=== PATIENT | male | born 1985 | race Hispanic/Latino ===

== ENCOUNTER 2021-02-04 07:15 | Emergency (ER) | payer SELFPAY ==
[2021-02-04 07:42] VITALS: BP 145/90
[2021-02-04] MEDS ORDERED: KETOROLAC 30 MG/1 ML INJ IM ONE (09:27)
--- NOTE | 2021-02-04 09:32 | Emergency Department Report ---
ED General Adult HPI - General Chief complaint: Psych Stated complaint: DEHYDRATION X 6 HRS Time Seen by Provider: 02/04/21 09:25 Source: patient, EMS Mode of arrival: Ambulatory Limitations: No Limitations - History of Present Illness Initial comments: 35-year-old male patient with history of bipolar disorder and chronic neck/back pain presents to the emergency department with complaints of an acute exacerbation of his chronic neck and back pain starting 3 days ago after he was arrested. Patient states he was restrained forcefully at the time of the arrest, which he has attributed to his increased pain. While he was incarcerated, he did not have access to his medications. Patient states he usually takes gabapentin and NSAIDs. He was under the care of a primary care provider before his incarceration, but now is not sure if he will be able to follow-up due to losing his job. Pain is consistent with prior flareups. Denies paresthesias, numbness, chest pain, shortness of breath, syncope, palpitations. Denies other complaints at this time. Severity scale (0 -10): 10 - Related Data Previous Rx's Medication Instructions Recorded Last Taken Type Naproxen 500 mg PO BID #20 tablet 02/04/21 Unknown Rx Allergies Allergy/AdvReac Type Severity Reaction Status Date / Time No Known Allergies Allergy Unverified 02/04/21 07:39 ED Review of Systems ROS: Stated complaint: DEHYDRATION X 6 HRS Other details as noted in HPI Other: GENERAL: Negative for fever, chills, weight change, anorexia, fatigue. ENT: Negative for ear pain, difficulty hearing, sore throat, nasal congestion, epistaxis. CARDIOVASCULAR: Negative for chest pain, palpitations, lower extremity swelling. PULMONARY: Negative for cough, dyspnea, wheezing, orthopnea, cyanosis. GASTROINTESTINAL: Negative for abdominal pain, nausea, vomiting, diarrhea, constipation. MUSCULOSKELETAL: Positive for back pain. NEUROLOGICAL: Negative for headache, seizure, syncope, paresthesias, weakness. INTEGUMENTARY: Negative for erythema, rash, diaphoresis, laceration, ecchymosis. HEMATOLOGICAL: Negative for hemoptysis, hematemesis, hematochezia, hematuria. PSYCHIATRIC: Negative for hallucinations, suicidal ideation, homicidal ideation, anxiety, depression. ED Past Medical Hx - Past Medical History Previous Medical History?: No - Surgical History Past Surgical History?: Yes Additional Surgical History: hernia repair - Medications Home Medications: Home Medications Medication Instructions Recorded Confirmed Last Taken Type Naproxen 500 mg PO BID #20 tablet 02/04/21 Unknown Rx ED Physical Exam - General Limitations: No Limitations - Other Other exam information: General: Awake and alert. No acute distress. Head: Atraumatic, normocephalic. Eyes: EOMI. Pupils are equal and round. Normal sclera and conjunctiva. ENT: Oral mucosa is moist. Normal pharyngeal exam. Neck: Supple. No lymphadenopathy. Pulmonary: No respiratory distress. Clear to auscultation bilaterally. Cardiac: Tachycardic. Pulses are palpable and equal bilaterally. No lower extremity cyanosis or edema. Skin: Warm and dry. No rashes. Abdomen: Soft, non-tender, non-protuberant. No guarding, rigidity, or rebound. Bowel sounds are normal. No organomegaly or masses noted. Back: Normal alignment. No CVA tenderness. Extremities: Symmetrical. Full range of motion intact. Neurological: Alert and oriented, appropriately interactive, no focal deficits. Psych: Cooperative. Appropriate mood and affect. Speech is evenly metered. Thoughts are logically construed. ED Course Vital Signs 02/04/21 02/04/21 02/04/21 07:40 09:55 10:13 Temperature 98.7 F Pulse Rate 100 H 112 H Respiratory 18 18 Rate Blood Pressure 145/90 [Right] O2 Sat by Pulse 99 Oximetry 02/04/21 13:17 Temperature Pulse Rate 72 Respiratory Rate Blood Pressure [Right] O2 Sat by Pulse Oximetry ED Medical Decision Making - Lab Data Result diagrams: 02/04/21 10:10 02/04/21 10:10 - Medical Decision Making Differential diagnosis including but not limited to: dehydration, electrolyte abnormality, hypoglycemia, rhabdomyolysis, toxic ingestion, anemia Patient presents emergency department with complaints of an acute exacerbation of his chronic back pain. He was recently released from skilled nursing. States he was unable to take his medications for the 3 days during which he was incarcerated. States his back pain is consistent with his baseline. Patient was noted to be tachycardic on arrival to the emergency department. No fever. Tachycardia did not resolve after analgesics and therefore further diagnostic work-up was initiated, which showed patient was mildly dehydrated. He is also positive for amphetamines. Tachycardia did resolve after a liter of IV fluids. Patient does have a history of bipolar disorder; he has his medications with him and has resumed taking them since he was released from skilled nursing. He specifically denies suicidal ideation, homicidal ideation, and hallucinations. He is not exhibiting any clinical signs of psychosis or agitation. He does not appear to be a harm to himself or others. He was not brought to the emergency department by law enforcement. There is no reason to keep him in the emergency department on an involuntary basis for mental health assessment. He has been advised to continue his current medication regimen and return to the emergency department immediately for any changes in his mental state. On reevaluation, patient is stable and states his symptoms have improved. He is resting comfortably. Repeat heart rate is in the 70s. No clinical evidence to suggest concomitant infectious process or significant metabolic derangement to warrant further diagnostic work-up on an emergent basis at this time. Patient will be discharged home with a short course of NSAIDs for his back pain. It was explained to the patient that the emergency department is not designed to manage chronic pain, and he would need to follow-up with a primary care provider for definitive management of his ongoing back pain. Patient expressed understanding and is agreeable to plan of care. Strict return precautions provided. Repeat exam is unremarkable and benign. History, exam, diagnostic testing, and current condition do not suggest worrisome pathology to warrant further testing, continued ED treatment, admission, or surgical evaluation at this point. Given the low probability of a significant medical illness, it would be more likely to result in harm than benefit to perform further testing at this stage. Discussed findings, presumptive diagnosis, need for follow-up and specific signs/symptoms that should prompt immediate return to the emergency department. Instructions were explained in detail to the patient in addition to giving written discharge information. Patient expressed understanding and was given the opportunity to ask questions, all of which were satisfactorily answered prior to discharge home . Critical care attestation.: If time is entered above; I have spent that time in minutes in the direct care of this critically ill patient, excluding procedure time. ED Disposition Clinical Impression: Chronic back pain Qualifiers: Back pain location: back pain in unspecified location Back pain laterality: unspecified Qualified Code(s): M54.9 - Dorsalgia, unspecified Disposition: DC-01 TO HOME OR SELFCARE Is pt being admited?: No Does the pt Need Aspirin: No Condition: Stable Instructions: Chronic Back Pain, [id number] Additional Instructions: Take Naprosyn twice daily with food as needed for pain. Continue all other medications as previously prescribed. Rest. Drink plenty fluids. Gradually advance physical activity slowly as tolerated. You must follow-up with primary care provider for definitive management of this ongoing issue, as well as refills of your other prescriptions. See referral information below. Call today to schedule an appointment. Return to the emergency department immediately for new or worsening symptoms. Specifically, return to the emergency department immediately for fever, numbness, chest pain, shortness of breath, vomiting, thoughts of suicide, thoughts of harming others, hallucinations, or any other concerns. Prescriptions: Naproxen 500 mg PO BID #20 tablet Referrals: AKIL URIOSTEGUI MD [Staff Physician] - 3-5 Days [facility] [Outside] - 3-5 Days [facility] [Outside] - 3-5 Days [facility] [Outside] - 3-5 Days Time of Disposition: 13:09
[2021-02-04] MEDS ORDERED: SODIUM CHLORIDE 0.9% 1000 ML 1,000 ML IV ONE (09:58)
--- NOTE | 2021-02-04 10:20 | XRay Report ---
CHEST 2 VIEWS INDICATION / CLINICAL INFORMATION: tachycardia. COMPARISON: None available. FINDINGS: SUPPORT DEVICES: None. HEART / MEDIASTINUM: No significant abnormality. LUNGS / PLEURA: No significant pulmonary or pleural abnormality. No pneumothorax. ADDITIONAL FINDINGS: No significant additional findings. IMPRESSION: 1. No acute findings. Signer Name: Terra Plata MD Signed: 02/04/2021 10:16 AM Workstation Name: [id number]
[2021-02-04 10:29] LABS: Basophils % (Auto) 0.5 % (0.0-1.8); Eosinophils # (Auto) 0.1 K/mm3 (0.0-0.4); Eosinophils % (Auto) 2.9 % (0.0-4.3); Hematocrit 40.8 % (35.5-45.6); Hemoglobin 13.4 gm/dl (11.8-15.2); Lymphocytes # (Auto) 1.4 K/mm3 (1.2-5.4); Lymphocytes % (Auto) 27.6 % (13.4-35.0); Mean Corpuscular HGB Conc 33 % (32-34); Mean Corpuscular Volume 83 fl (84-94); Monocytes # (Auto) 0.5 K/mm3 (0.0-0.8); Monocytes % (Auto) 9.1 % (0.0-7.3); Platelet Count 185 K/mm3 (140-440); Red Blood Count 4.94 M/mm3 (3.65-5.03); Red Cell Distribution Width 15.1 % (13.2-15.2)
[2021-02-04 10:51] LABS: Alanine Aminotransferase 21 units/L (7-56); Albumin 3.7 g/dL (3.9-5); BUN/Creatinine Ratio 22; Blood Urea Nitrogen 22 mg/dL (9-20); Calcium 8.6 mg/dL (8.4-10.2); Hemolysis Index 3
[2021-02-04 12:30] LABS: Bilirubin,Urine NEG (Negative); Blood,Urine NEG (Negative); Color,Urine Yellow (Yellow); Mucus,Urine 3+ /HPF; Urobilinogen,Urine < 2.0 mg/dL (<2.0)
[2021-02-04 13:18] LABS: Amphetamine Screen,Urine PRESUMPTIVE POSITIVE; Benzodiazepines Screen,Urine PRESUMPTIVE NEGATIVE; Cannabinoid Screen,Urine PRESUMPTIVE POSITIVE; Cocaine Screen,Urine PRESUMPTIVE NEGATIVE; Methadone Screen,Urine PRESUMPTIVE POSITIVE; Opiate Screen,Urine PRESUMPTIVE NEGATIVE
== END 2021-02-04 13:49 | disposition home or self-care (01) ==
LOC: ED 07:15
DX: M54.9 Dorsalgia, unspecified (principal); G89.29 Other chronic pain
CPT/HCPCS: 36415; 71046; 80053; 80307; 81001; 82550; 83735; 84436; 84443; 84484; 85025; 96360; 96372; 99284; J1885; J7030